=== PATIENT | female | born 2000 | race Caucasian/White ===

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

== ENCOUNTER 2018-02-25 21:25 | Emergency (ER) | payer SELFPAY ==
[~2018-02-25] VITALS: Ht 160 cm; Wt 63.5 kg
[~2018-02-25 21:25] MED LIST changes: +BENADRYL ALLERG25 M5 PO; +MEDROL DOSEPAK4 MG PO
[2018-02-25] MEDS ORDERED: PRENATAL VITAM1 EAC4 PO (21:57)
== END 2018-02-25 22:03 | disposition home or self-care (01) ==
LOC: ED 21:25
DX: Z32.01 Encounter for pregnancy test, result positive (principal); Z91.010 Allergy to peanuts